=== PATIENT | female | born 1975 | race Asian ===

== ENCOUNTER 2017-12-06 20:35 | Emergency (ER) | payer OTHER ==
[2017-12-06] MEDS ORDERED: Albuterol/Ipratropium Neb 3 ML AERS HHN ONE ×2 (20:50→20:52)
[2017-12-06] MEDS ORDERED: Dexamethasone Sodium Phos 4 mg/mL Vial ONE (20:51)
[2017-12-06] MEDS ORDERED: Dexamethasone Sodium Phos 4 mg/mL Vial INH STA (20:53)
--- NOTE | 2017-12-06 21:07 | ED Physician Chart ---
ED Chief Complaint/HPI - Patient Information Date Seen:: 12/06/17 Time Seen:: 20:54 Chief Complaint:: cough History of Present Illness:: 42 yr old female with cough not getting better for few days hx of asthma finishing up zpack but not getting better Allergies:: Allergies Allergy/AdvReac Type Severity Reaction Status Date / Time No Known Allergies Allergy Verified 12/06/17 20:39 Vitals:: Vital Signs - 8 hr 12/06/17 20:35 Temp 98.4 F HR 96 RR 18 BP 163/112 O2 Sat % 96 ED Review of Systems - Review of Systems General/Constitutional: No fever Skin: No skin lesions Head: No headache Eyes: No loss of vision ENT: No earache Neck: No neck pain Cardio Vascular: No chest pain Pulmonary: No SOB GI: No nausea G/U: No dysuria Musculoskeletal: Bone or joint pain Endocrine: No polyuria Psychiatric: No prior psych history Hematopoietic: No bruising Neurological: No syncope Family Medical History - Family Member Mother History Unknown: Yes ED Septic Shock - . Is Septic Shock (SBP<90, OR Lactate>4 mmol\L) present?: No - <6hrs of presentation: Vital Signs: Vital Signs - 8 hr 12/06/17 20:35 Temp 98.4 F HR 96 RR 18 BP 163/112 O2 Sat % 96 ED Reassessment (Disposition) - Reassessment Reassessment Condition:: Improved - Diagnosis Diagnosis:: bronchitis asthma exacerbation - Aftercare/Follow up Instructions Aftercare/Follow-Up Instructions:: Counseled pt regarding lab results/diagnosis & need follow up Medication Prescribed:: albuterol inhaler bactrim ds medrol dose pack phenergan with codeine amylodipine 5 mg for hypertension - Patient Disposition Discharge/Transfer:: Home Condition at Disposition:: Stable
== END 2017-12-06 22:05 | disposition home or self-care (01) ==
LOC: EEVIPCON 20:35 → ER 20:35
DX: J45.901 Unspecified asthma with (acute) exacerbation (principal)
CPT/HCPCS: 99284; 94640; J1100; Z7502

== ENCOUNTER 2017-12-14 10:04 | Inpatient (IN) | payer OTHER ==
[2017-12-14 10:45] LABS: EOSINOPHILE ABSOLUTE 0.1 Th/cmm (0.1-0.4); HEMATOCRIT 45.5 % (41.0-60); HEMOGLOBIN 15.5 gm/dL (12-16); LYMPHOCYTE ABSOLUTE 0.8 Th/cmm (1.5-3.0); MEAN CELL VOLUME 88.2 fl (81-100); MEAN CORPUSCULAR HEMOGLOBIN 30.2 pg (27.0-31.0); MEAN CORPUSCULAR HGB CONC 34.2 pg (28.0-36.0); MEAN PLATELET VOLUME 7.7 fl; MONOCYTE ABSOLUTE 0.1 Th/cmm (0.3-1.0); NEUTROPHILE ABSOLUTE 10.8 Th/cmm (1.8-8.0); PLATELET COUNT 467 Th/cmm (150-400); RED BLOOD COUNT 5.15 Mil/cmm (3.80-5.10); RED CELL DISTRIBUTION WIDTH 12.6 % (11.5-20.0); WHITE BLOOD COUNT 11.8 Th/cmm (4.8-10.8)
[2017-12-14] MEDS ORDERED: Lactated Ringer 1,000 ML IV ONE (10:49)
[2017-12-14] MEDS ORDERED: cefTRIAXone 1 GM in Sodium Chloride 0.9% 50 ML IV ONE (10:51)
[2017-12-14 10:55] LABS: URINE SOURCE CLEAN C
[2017-12-14 11:01] LABS: ALB/GLOB RATIO 1.2 (1.0-1.8); ALBUMIN 4.6 gm/dL (3.7-5.3); ALKALINE PHOSPHATASE 63 U/L (34-104); ANION GAP 16.4 (7.0-16.0); BILIRUBIN,TOTAL 0.4 mg/dL (0.3-1.0); BUN - UREA NITROGEN 9 mg/dL (7-25); CALCIUM SERUM 9.7 mg/dL (8.6-10.3); CARBON DIOXIDE 20.3 mEq/L (21.0-31.0); CHLORIDE 102 mEq/L (98-107); CREATININE - SERUM 0.6 mg/dL (0.6-1.2); GFR AFRICAN-AMERICAN > 60.0 ml/min (>90); GFR NON AFRICAN-AMERICAN > 60.0 ml/min; GLUCOSE 113 mg/dL (70-105); MAGNESIUM 2.2 mg/dL (1.9-2.7); PHOSPHOROUS 1.8 mg/dL (2.5-5.0); POTASSIUM SERUM 3.7 mEq/L (3.5-5.1); SGOT 24 U/L (13-39); SGPT/ALT 38 U/L (7-52); SODIUM SERUM 135 mEq/L (136-145); TOTAL PROTEIN,SERUM 8.3 gm/dL (6.0-8.3)
[2017-12-14 11:02] LABS: URINE BILIRUBIN NEGATIVE (NEGATIVE); URINE BLOOD TRACE (NEGATIVE); URINE GLUCOSE (UA) NEGATIVE (NEGATIVE); URINE KETONE NEGATIVE (NEGATIVE); URINE LEUKOCYTE ESTERASE TRACE (NEGATIVE); URINE MICROSCOPIC INDICATED? YES; URINE NITRATE NEGATIVE (NEGATIVE); URINE PROTEIN NEGATIVE (NEGATIVE); URINE UROBILINOGEN 0.2 E.U./dL (0.2 - 1.0)
[2017-12-14] MEDS ORDERED: Sodium Phos / Potassium Phos 1.25 GM PACK PO ONE (11:09)
[2017-12-14 11:24] LABS: DDIMER QUANT 112 ng/mL (100-400)
[2017-12-14 11:39] LABS: URINE CLARITY CLEAR (CLEAR); URINE COLOR YELLOW; URINE EPITHELIAL CELLS FEW /lpf (FEW); URINE RBC 0-2 /hpf (0-5)
[2017-12-14 11:40] LABS: URINE BACTERIA MODERATE /hpf (NONE SEEN)
[2017-12-14 11:55] LABS: INF A SCREEN NEG FOR INF A; INF B SCREEN NEG FOR INF B
[2017-12-14] MEDS ORDERED: Piperacillin Sodium/Tazobact 3.375 gm Vial IV ONE (12:01)
[2017-12-14] MEDS ORDERED: Albuterol Nebulizer 2.5mg/3mL HHN PRN (12:11)
[2017-12-14] MEDS ORDERED: Ipratropium Neb 0.5 mg/2.5 mL UD IH PRN (12:11)
[2017-12-14] MEDS ORDERED: D5-0.9%NS 1,000 ML IV SCH (12:15)
--- NOTE | 2017-12-14 12:24 | Diagnostic Imaging Report ---
Portable chest x-ray History: Shortness of breath Allowing for portable technique the heart size is normal. No focal pulmonary parenchymal processes. No hilar or mediastinal abnormalities. Impression: No acute abnormalities.
[2017-12-14] MEDS ORDERED: Codeine/Promethazine Susp 5 mL UDC PO PRN (12:26)
[2017-12-14 12:37] LABS: BAND NEUTROPHILE 1 % (0-10); NEUTROPHILS 85 % (40-80)
[2017-12-14 12:38] LABS: LYMPHOCYTE 12 % (20-50); MONOCYTE 2 % (2-10); PLATELET ESTIMATE INCREASED PLATELETS (NORMAL)
--- NOTE | 2017-12-14 12:45 | ED Physician Chart ---
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 she presents asking for a CXR. had productive sputum in the past. she was seen by Dr Cortez on 12/04/17 and prescribed codeine cough syrup and zpack. Returned on 12/06/17 and signed in as a patient. antibiotics were changed to Bacrtrim. cough syrup was prescribed again. she recently came back from the [facility] where she was there for 4 weeks. Cough started after that. States that her PPD is always positive. Allergies:: Allergies Allergy/AdvReac Type Severity Reaction Status Date / Time No Known Allergies Allergy Verified 12/06/17 20:39 Vitals:: Vital Signs - 8 hr 12/14/17 12/14/17 10:14 12:18 Temp 98.7 F 98.7 F HR 122 104 RR 23 26 BP 150/86 151/82 O2 Sat % 98 99 Historian:: Patient, Family Member Review:: Nurse's Note Reviewed ED Review of Systems - Review of Systems General/Constitutional: No fever, No chills, No weight loss, Weakness, No diaphoresis, No edema, No loss of appetite Skin: No skin lesions, No rash, No bruising Head: No headache, No light-headedness Eyes: No loss of vision, No pain, No diplopia ENT: No earache, Nasal drainage, No sore throat, No tinnitus Neck: No neck pain, No swelling, No thyromegaly, No stiffness, No mass noted Cardio Vascular: No chest pain, No palpitations, No PND, No orthopnea, No edema Pulmonary: SOB, Cough, No sputum, No wheezing GI: No nausea, No vomiting, No diarrhea, No pain, No melena, No hematochezia, No constipation, No hematemesis G/U: No dysuria, No frequency, No hematuria Musculoskeletal: No bone or joint pain, No back pain, No muscle pain Endocrine: No polyuria, No polydipsia Psychiatric: No prior psych history, No depression, No anxiety, No suicidal ideation Hematopoietic: No bruising, No lymphadenopathy Allergic/Immuno: No urticaria, No angioedema Neurological: No syncope, No focal symptoms, No weakness, No paresthesia, No headache, No seizure, No dizziness, No confusion, No vertigo ED Past Medical History - Past Medical History Obtainable: Yes Past Medical History: HTN, Other (ppd positive) Social History: Family Medical History - Family Member Mother History Unknown: Yes Father Name:: Alberto Reyes Ethnicity: Non- Living Status: Hx Family Cancer: Yes (Prostate cancer) Hx Family Coronary Artery Disease: No Hx Family Congestive Heart Failure: No Hx Family Hypertension: Yes Hx Family Stroke: No Hx Family Diabetes: No Hx Family Seizures: No Hx Family Dementia: No Hx Family AIDS: No Hx Family HIV: No Hx Family COPD: No Hx Family Hepatitis: No Hx Family Psychiatric Problems: No Hx Family Tuberculosis: No ED Physical Exam - Physical Examination General/Constitutional: Awake, Well-developed, well-nourished, Alert, GCS 15, Non-toxic appearing, Ambulatory Other Gen/Cons comments:: sob with talking. Head: Atraumatic Eyes: Lids, conjuctiva normal, PERRL, EOMI Skin: Nl inspection, No rash, No skin lesions, No ecchymosis, No lymphadenopathy Other Skin comments:: dry oral mucosa ENMT: External ears, nose nl Neck: Nontender, No nuchal rigidity Other Respiratory comments:: sob with talking. Bilateral rhonchi. No wheezing. Other Cardio Vascular comments:: tachycardia. : No CVA tenderness Extremities: No tenderness or effusion, Full ROM, normal strength in all extremities, No edema Neuro/Psych: Alert/oriented, Normal sensory exam, Normal motor strength, Judgement/insight normal, Mood normal, Normal gait, No focal deficits Misc: Normal back, No paraspinal tenderness ED Labs/Radiology/EKG Results - Lab Results Results: Laboratory Tests 12/14/17 12/14/17 12/14/17 10:15 10:15 10:32 WBC RBC Hgb Hct MCV MCH MCHC Differential RDW Plt Count MPV Add Manual Diff Band Neutrophils % Neutrophils (Manual) Lymphocytes Monocytes Platelet Estimate D-Dimer Sodium Potassium Chloride Carbon Dioxide Anion Gap BUN Creatinine Est GFR ( Amer) Est GFR (Non-Af Amer) BUN/Creatinine Ratio Glucose Whole Bld Lactic Acid Calcium Phosphorus Magnesium Total Bilirubin AST ALT Alkaline Phosphatase Total Protein Albumin Globulin Albumin/Globulin Ratio Urine Source CLEAN C Urine Color YELLOW Urine Clarity CLEAR Urine pH 6.0 Ur Specific [place] 1.010 Urine Protein NEGATIVE Urine Glucose (UA) NEGATIVE Urine Ketones NEGATIVE Urine Blood TRACE Urine Nitrate NEGATIVE Urine Bilirubin NEGATIVE Urine Urobilinogen 0.2 Ur Leukocyte Esterase TRACE H Urine RBC 0-2 Urine WBC 6-10 H Ur Epithelial Cells FEW Urine Bacteria MODERATE H Urine Test NEGATIVE POC Ur Test Negative Influenza A (Rapid) Influenza B (Rapid) 12/14/17 12/14/17 12/14/17 10:34 10:34 10:34 WBC 11.8 H RBC 5.15 H Hgb 15.5 Hct 45.5 MCV 88.2 MCH 30.2 MCHC Differential 34.2 RDW 12.6 Plt Count 467 H MPV 7.7 Add Manual Diff YES Band Neutrophils % 1 Neutrophils (Manual) 85 H Lymphocytes 12 L Monocytes 2 Platelet Estimate INCREASED PLATELETS D-Dimer 112 Sodium 135 L Potassium 3.7 Chloride 102 Carbon Dioxide 20.3 L Anion Gap 16.4 H BUN 9 Creatinine 0.6 Est GFR ( Amer) > 60.0 Est GFR (Non-Af Amer) > 60.0 BUN/Creatinine Ratio 15.0 Glucose 113 H Whole Bld Lactic Acid 3.45 H* Calcium 9.7 Phosphorus 1.8 L Magnesium 2.2 Total Bilirubin 0.4 AST 24 ALT 38 Alkaline Phosphatase 63 Total Protein 8.3 Albumin 4.6 Globulin 3.7 Albumin/Globulin Ratio 1.2 Urine Source Urine Color Urine Clarity Urine pH Ur Specific [place] Urine Protein Urine Glucose (UA) Urine Ketones Urine Blood Urine Nitrate Urine Bilirubin Urine Urobilinogen Ur Leukocyte Esterase Urine RBC Urine WBC Ur Epithelial Cells Urine Bacteria Urine Test POC Ur Test Influenza A (Rapid) Influenza B (Rapid) 12/14/17 11:07 WBC RBC Hgb Hct MCV MCH MCHC Differential RDW Plt Count MPV Add Manual Diff Band Neutrophils % Neutrophils (Manual) Lymphocytes Monocytes Platelet Estimate D-Dimer Sodium Potassium Chloride Carbon Dioxide Anion Gap BUN Creatinine Est GFR ( Amer) Est GFR (Non-Af Amer) BUN/Creatinine Ratio Glucose Whole Bld Lactic Acid Calcium Phosphorus Magnesium Total Bilirubin AST ALT Alkaline Phosphatase Total Protein Albumin Globulin Albumin/Globulin Ratio Urine Source Urine Color Urine Clarity Urine pH Ur Specific [place] Urine Protein Urine Glucose (UA) Urine Ketones Urine Blood Urine Nitrate Urine Bilirubin Urine Urobilinogen Ur Leukocyte Esterase Urine RBC Urine WBC Ur Epithelial Cells Urine Bacteria Urine Test POC Ur Test Influenza A (Rapid) NEG FOR INF A Influenza B (Rapid) NEG FOR INF B ED Assessment - Assessment General Assessment: EKG from 12:27:39 p.m. reveals sinus tachycardia with flipped t wave in III, V1- V2. Dr. Anne (patient's primary care physician called). He came to see the patient in the ER and will admit her. Assessment/Comments:: my reading of CXR. More hazy in the RLL. May need hydration to fully see infiltrate. ED Septic Shock - . Is Septic Shock (SBP<90, OR Lactate>4 mmol\L) present?: No - <6hrs of presentation: Vital Signs: Vital Signs - 8 hr 12/14/17 12/14/17 10:14 12:18 Temp 98.7 F 98.7 F HR 122 104 RR 23 26 BP 150/86 151/82 O2 Sat % 98 99 ED Reassessment (Disposition) - Reassessment Reassessment Condition:: Improved - Diagnosis Diagnosis:: Early right lower lobe pneumonia. Dehydration Tachycardia. Urinary tract infection. Lactic acidosis. Leukocytosis Thrombocytosis. Low phosphorous. - Patient Disposition Discharge/Transfer:: Acute Care w/in this hosp Admitted to:: Telemetry Condition at Disposition:: Stable, Improved
--- NOTE | 2017-12-14 13:56 | Diagnostic Imaging Report ---
CT scan of the chest without intravenous contrast HISTORY: Shortness of breath Total DLP equals 198 CTDI equals 6.2 Axial sections were obtained from level above the clavicles down to level below the diaphragm. The heart size is normal. No abnormal mediastinal masses. Evaluation the hilar and vascular structures limited due to the absence of intravenous contrast. No definite abnormal hilar masses. No abnormal focal pulmonary parenchymal processes. No other abnormal masses or nodules. No pleural fluid. IMPRESSION: No acute abnormalities
[2017-12-14] MEDS ORDERED: Sodium Phosphate 20 MMOLE in Sodium Chloride 0.9% 250 ML IV ONE (14:00)
[2017-12-14] MEDS: guaiFENesin 200 MG/10 ML UDC PO PRN ×2 (14:21→21:10)
[2017-12-14 15:11] VITALS: BP 150/86
--- NOTE | 2017-12-14 22:23 | History & Physical ---
ADMIT DATE: 12/14/2017 CHIEF COMPLAINT: Not feeling well, ____ coughing. HISTORY OF PRESENT ILLNESS: This is a 42-year-old [place] female with history of asthma, was seen initially 2 days prior, complaining of cough and congestion. The patient was diagnosed with asthma and bronchitis. At that time, the patient was discharged home on Bactrim as well as a Medrol keyanna. The patient comes back not feeling well with increasing congestion. The patient was evaluated by Dr. Avilez. UA was positive for UTI as well as a congestion on chest x-ray. The patient had elevated lactic acid, elevated white count. The patient required admission secondary to failing outpatient therapy. PAST MEDICAL HISTORY: As mentioned in the history of present illness. PAST SURGICAL HISTORY: Denies surgeries in the past. ALLERGIES: No known drug allergies. MEDICATIONS: Bactrim as well as Medrol keyanna. FAMILY HISTORY: Noncontributory. SOCIAL HISTORY: The patient is a nonsmoker, nondrinker, . REVIEW OF SYSTEMS: GENERAL: Complains not feeling well. HEENT: No blurred vision. LUNGS: No diagnosis of chronic obstructive pulmonary disease. The patient has asthma. HEART: The patient with elevated blood pressure, previously prescribed amlodipine, but not taking it. ABDOMEN: No nausea, vomiting, or pain. GENITOURINARY: The patient denies increased effort or dysuria. NEUROLOGIC: No headache, seizure or CVA. PSYCHIATRIC: As above. PHYSICAL EXAMINATION: VITAL SIGNS: Blood pressure 113/88, respirations 18, pulse 104-122, temperature 98. GENERAL: Middle-aged female, in no acute distress. NECK: Supple. No mass. LUNGS: Equal breath sounds with a few rhonchi. HEART: Sinus tachycardia. No murmur. ABDOMEN: Soft, globular. EXTREMITIES: Positive excoriation. NEUROLOGIC: Limited. LABORATORY DATA: Noted WBC 11, hemoglobin 15, platelets 467. Sodium 135, potassium 3.7, BUN 9, creatinine 0.6. Lactic acid 3.4, blood sugar 113, phosphorus 1.8. UA moderate bacteria, 10 wbc's. Influenza A and B are negative. ASSESSMENT: 1. Sepsis, possible pneumonia. 2. Urinary tract infection. 3. Asthma. 4. Elevated blood pressure. 5. Leukocytosis. 6. Hyponatremia. 7. Hypophosphatemia. PLAN: We will correct the patient's electrolyte imbalance. We will aggressively hydrate the patient. We will monitor the patient's lactic acid. Continue IV antibiotic. We will send for sputum Gram stain and C and S. We will admit the patient for further management. Case was discussed with the patient as well as Dr. Avilez. JOB# [id number]
[2017-12-15 05:05] LABS: % BASOPHILS 0.1 % (0.0-2.0); % EOSINOPHILS 0.8 % (0.0-5.0); % LYMPHOCYTES 19.1 % (20.0-50.0); % MONOCYTES 3.1 % (2.0-10.0); % NEUTROPHILS 76.9 % (40.0-80.0); EOSINOPHILE ABSOLUTE 0.1 Th/cmm (0.1-0.4); HEMATOCRIT 42.6 % (41.0-60); HEMOGLOBIN 14.7 gm/dL (12-16); LYMPHOCYTE ABSOLUTE 1.9 Th/cmm (1.5-3.0); MEAN CELL VOLUME 86.8 fl (81-100); MEAN CORPUSCULAR HEMOGLOBIN 29.9 pg (27.0-31.0); MEAN CORPUSCULAR HGB CONC 34.4 pg (28.0-36.0); MONOCYTE ABSOLUTE 0.3 Th/cmm (0.3-1.0); NEUTROPHILE ABSOLUTE 7.7 Th/cmm (1.8-8.0); PLATELET COUNT 448 Th/cmm (150-400); RED BLOOD COUNT 4.91 Mil/cmm (3.80-5.10); RED CELL DISTRIBUTION WIDTH 12.3 % (11.5-20.0)
[2017-12-15 05:36] LABS: ALB/GLOB RATIO 1.3 (1.0-1.8); ALKALINE PHOSPHATASE 50 U/L (34-104); ANION GAP 14.1 (7.0-16.0); BILIRUBIN,TOTAL 0.8 mg/dL (0.3-1.0); BUN - UREA NITROGEN 7 mg/dL (7-25); CALCIUM SERUM 8.3 mg/dL (8.6-10.3); CARBON DIOXIDE 22.8 mEq/L (21.0-31.0); CHLORIDE 102 mEq/L (98-107); CREATININE - SERUM 0.5 mg/dL (0.6-1.2); GFR AFRICAN-AMERICAN > 60.0 ml/min (>90); GFR NON AFRICAN-AMERICAN > 60.0 ml/min; GLUCOSE 112 mg/dL (70-105); SGOT 21 U/L (13-39); SGPT/ALT 31 U/L (7-52); SODIUM SERUM 136 mEq/L (136-145); TOTAL PROTEIN,SERUM 7.2 gm/dL (6.0-8.3)
[2017-12-15 05:42] LABS: POTASSIUM SERUM 2.9 mEq/L (3.5-5.1)
[2017-12-15] MEDS ORDERED: Potassium Chloride 40 MEQ, Lidocaine 1% 20mL Vial 25 MG in Sodium Chloride 0.9% 250 ML IV ONE (08:30)
[2017-12-15] MEDS: guaiFENesin 200 MG/10 ML UDC PO PRN (09:25)
[2017-12-15] MEDS ORDERED: Potassium Chloride 20 mEq ER Tab PO ONE (11:59)
--- NOTE | 2017-12-15 13:27 | Internal Medicine Prog Note ---
Internal Medicine Subjective - Subjective Service Date: 12/15/17 (dc summary [id number]) Internal Medicine Objective - Results Result Diagrams: 12/15/17 05:00 12/15/17 05:00 Recent Labs: Laboratory Last Values WBC 10.0 Th/cmm (4.8-10.8) 12/15/17 05:00 RBC 4.91 Mil/cmm (3.80-5.10) 12/15/17 05:00 Hgb 14.7 gm/dL (12-16) 12/15/17 05:00 Hct 42.6 % (41.0-60) 12/15/17 05:00 MCV 86.8 fl (81-100) 12/15/17 05:00 MCH 29.9 pg (27.0-31.0) 12/15/17 05:00 MCHC Differential 34.4 pg (28.0-36.0) 12/15/17 05:00 RDW 12.3 % (11.5-20.0) 12/15/17 05:00 Plt Count 448 Th/cmm (150-400) H 12/15/17 05:00 MPV 7.0 fl 12/15/17 05:00 Add Manual Diff YES 12/14/17 10:34 Neutrophils % 76.9 % (40.0-80.0) 12/15/17 05:00 Band Neutrophils % 1 % (0-10) 12/14/17 10:34 Lymphocytes % 19.1 % (20.0-50.0) L 12/15/17 05:00 Monocytes % 3.1 % (2.0-10.0) 12/15/17 05:00 Eosinophils % 0.8 % (0.0-5.0) 12/15/17 05:00 Basophils % 0.1 % (0.0-2.0) 12/15/17 05:00 Neutrophils (Manual) 85 % (40-80) H 12/14/17 10:34 Lymphocytes 12 % (20-50) L 12/14/17 10:34 Monocytes 2 % (2-10) 12/14/17 10:34 Platelet Estimate INCREASED PLATELETS (NORMAL) 12/14/17 10:34 D-Dimer 112 ng/mL (100-400) 12/14/17 10:34 Sodium 136 mEq/L (136-145) 12/15/17 05:00 Potassium 2.9 mEq/L (3.5-5.1) L* 12/15/17 05:00 Chloride 102 mEq/L (98-107) 12/15/17 05:00 Carbon Dioxide 22.8 mEq/L (21.0-31.0) 12/15/17 05:00 Anion Gap 14.1 (7.0-16.0) 12/15/17 05:00 BUN 7 mg/dL (7-25) 12/15/17 05:00 Creatinine 0.5 mg/dL (0.6-1.2) L 12/15/17 05:00 Est GFR ( Amer) > 60.0 ml/min (>90) 12/15/17 05:00 Est GFR (Non-Af Amer) > 60.0 ml/min 12/15/17 05:00 BUN/Creatinine Ratio 14.0 12/15/17 05:00 Glucose 112 mg/dL (70-105) H 12/15/17 05:00 Whole Bld Lactic Acid 2.21 mmol/L (0.60-1.99) H* 12/14/17 13:01 Calcium 8.3 mg/dL (8.6-10.3) L 12/15/17 05:00 Phosphorus 2.3 mg/dL (2.5-5.0) L 12/15/17 05:00 Magnesium 2.2 mg/dL (1.9-2.7) 12/14/17 10:34 Total Bilirubin 0.8 mg/dL (0.3-1.0) 12/15/17 05:00 AST 21 U/L (13-39) 12/15/17 05:00 ALT 31 U/L (7-52) 12/15/17 05:00 Alkaline Phosphatase 50 U/L (34-104) 12/15/17 05:00 Total Protein 7.2 gm/dL (6.0-8.3) 12/15/17 05:00 Albumin 4.0 gm/dL (3.7-5.3) 12/15/17 05:00 Globulin 3.2 gm/dL 12/15/17 05:00 Albumin/Globulin Ratio 1.3 (1.0-1.8) 12/15/17 05:00 TSH 4.77 uIU/ml (0.34-5.60) 12/15/17 05:00 Urine Source CLEAN C 12/14/17 10:15 Urine Color YELLOW 12/14/17 10:15 Urine Clarity CLEAR (CLEAR) 12/14/17 10:15 Urine pH 6.0 (4.6 - 8.0) 12/14/17 10:15 Ur Specific [place] 1.010 (1.005-1.030) 12/14/17 10:15 Urine Protein NEGATIVE mg/dL (NEGATIVE) 12/14/17 10:15 Urine Glucose (UA) NEGATIVE mg/dL (NEGATIVE) 12/14/17 10:15 Urine Ketones NEGATIVE mg/dL (NEGATIVE) 12/14/17 10:15 Urine Blood TRACE (NEGATIVE) 12/14/17 10:15 Urine Nitrate NEGATIVE (NEGATIVE) 12/14/17 10:15 Urine Bilirubin NEGATIVE (NEGATIVE) 12/14/17 10:15 Urine Urobilinogen 0.2 E.U./dL (0.2 - 1.0) 12/14/17 10:15 Ur Leukocyte Esterase TRACE (NEGATIVE) H 12/14/17 10:15 Urine RBC 0-2 /hpf (0-5) 12/14/17 10:15 Urine WBC 6-10 /hpf (0-5) H 12/14/17 10:15 Ur Epithelial Cells FEW /lpf (FEW) 12/14/17 10:15 Urine Bacteria MODERATE /hpf (NONE SEEN) H 12/14/17 10:15 Urine Test NEGATIVE 12/14/17 10:15 POC Ur Test Negative 12/14/17 10:32 Influenza A (Rapid) NEG FOR INF A 12/14/17 11:07 Influenza B (Rapid) NEG FOR INF B 12/14/17 11:07 - Physical Exam Vitals and I&O: Vital Signs Temp 97.1 F 12/15/17 11:26 Pulse 98 12/15/17 11:26 Resp 18 12/15/17 11:26 BP 146/75 12/15/17 11:26 Pulse Ox 99 12/15/17 11:26 Intake & Output 12/14/17 12/15/17 12/15/17 18:59 06:59 18:59 Intake Total 740.833 0 Balance 740.833 0 Weight (lbs) 166 lb 150 lb Intake: Intake, IV Amount 620.833 0 Cefepime 1 gm In Dextrose 100 5% 50 ml @ 100 mls/hr IV Q12HR@0900,2100 [facility] Rx#: [id number] D5-0.9%Ns 1,000 ml @ 125 520.833 0 mls/hr IV .Q8H [facility] Rx#: [id number] Oral 120 Other: # Voids 3 # Bowel Movements 1 Weight Source Patient stated Bedscale Active Medications: Current Medications Acetaminophen (Tylenol) 650 mg PO Q4H PRN PRN Reason: Pain Or Fever above 101 Stop: 02/12/18 12:11 Last Admin: 12/15/17 09:25 Dose: 650 mg Albuterol Sulfate (Albuterol 2.5mg/3ml Neb Ud) 2.5 mg HHN Q2HRT PRN PRN Reason: Shortness of Breath or Wheeze Stop: 02/12/18 12:10 Guaifenesin (Robitussin) 200 mg PO Q4HR PRN PRN Reason: Cough or Congestion Stop: 02/12/18 12:11 Last Admin: 12/15/17 09:25 Dose: 200 mg Heparin Sodium (Porcine) (Heparin) 5,000 units SUBQ Q12HR [facility] Stop: 02/12/18 20:59 Last Admin: 12/15/17 09:18 Dose: 5,000 units Cefepime HCl 1 gm/ Dextrose 50 mls @ 100 mls/hr IV Q12HR@0900,2100 [facility] Stop: 02/12/18 13:59 Last Admin: 12/15/17 09:18 Dose: 100 mls/hr Dextrose/Sodium Chloride (D5-0.9%Ns) 1,000 mls @ 125 mls/hr IV .Q8H [facility] Stop: 02/12/18 12:14 Last Infusion: 12/15/17 13:25 Dose: 125 mls/hr Ipratropium [place] (Atrovent Neb 0.5mg/2.5ml) 0.5 mg IH Q2HRT PRN PRN Reason: Shortness of Breath or Wheeze Stop: 02/12/18 12:10 Ondansetron HCl (Zofran) 4 mg IV Q8H PRN PRN Reason: Nausea / Vomiting Stop: 02/12/18 12:11 Promethazine HCl/Codeine (Phenergan W/Cod Susp) 10 ml PO Q6H PRN PRN Reason: IF ROBITUSSIN INEFFECTIVE Stop: 02/12/18 12:25 Zolpidem Tartrate (Ambien) 10 mg PO HS PRN PRN Reason: Insomnia Stop: 02/12/18 12:10 Last Admin: 12/14/17 22:30 Dose: 10 mg
--- NOTE | 2017-12-15 20:43 | Discharge Summary ---
DATE OF DISCHARGE: 12/15/2017 DISCHARGE DIAGNOSES: Acute urinary tract infection, asthma, elevated blood pressure, leukocytosis, which has improved, hyponatremia and hypophosphatemia. HISTORY OF PRESENT ILLNESS: A 42-year-old [place] female with a history of asthma who was seen initially 2 days prior complaining of cough and congestion. The patient was diagnosed with asthma and bronchitis at that time. The patient was discharged home on Bactrim as well as Medrol [place]. The patient comes back not feeling well with increasing congestion. The patient was evaluated by ER physician, Dr. Avilez. UA was positive for UTI as well as congestion on x-ray. The patient had elevated lactic acid and elevated white count; therefore, sepsis protocol was initiated. PHYSICAL EXAMINATION: GENERAL: The patient is well-developed, well-nourished, no apparent distress. VITAL SIGNS: Stable. HEAD: Normocephalic and atraumatic. NECK: Supple. No mass. LUNGS: Clear bilaterally. HEART: Regular rate and rhythm. ABDOMEN: Soft and nontender. HOSPITAL COURSE: During the hospital stay, the patient was admitted to the telemetry unit. We corrected the patient's electrolyte imbalance and aggressive IV fluids for hydration. The patient was also kept on empiric IV antibiotics. The patient's blood culture showed no growth after 24 hours, no growth as well as from sputum culture. The patient was later then stabilized for discharge. CONDITION UPON DISCHARGE: Fair. DISPOSITION: Home. The patient was educated to follow up with PCP upon discharge. JOB# [id number]
== END 2017-12-15 14:15 | disposition home or self-care (01) | DRG 871 ==
LOC: ER 10:04 → MSI 12:28 → TELE 12:39
PROVIDERS: ADMIT Internal Medicine; ATTEND Internal Medicine
DX: A41.9 Sepsis, unspecified organism (principal); J18.1 Lobar pneumonia, unspecified organism; N39.0 Urinary tract infection, site not specified; E87.1 Hypo-osmolality and hyponatremia; J45.909 Unspecified asthma, uncomplicated; E83.39 Other disorders of phosphorus metabolism; I10 Essential (primary) hypertension; E86.0 Dehydration
CPT/HCPCS: 36415-UA; 71045-TC; 71250-TC; 80053-TC; 81001-TC; 81025-TC; 83605; 83735-TC; 84100-TC; 84443-TC; 85007-TC; 85025-TC; 85379-TC; 87070; 87086-90; 87804-TC; 90799; 93005; 94760; 96375; J0692; J0696; J1644; J2001; J2543; J3480; J7042; Z7610

== ENCOUNTER 2018-02-05 09:56 | Emergency (ER) | payer OTHER ==
[2018-02-05] MEDS ORDERED: Morphine Sulfate 2 mg/mL 1mL Syr IVP ONE (10:17)
[2018-02-05] MEDS ORDERED: Sodium Chloride 0.9% 1,000 ML IV ONE (10:17)
--- NOTE | 2018-02-05 10:17 | ED Physician Chart ---
ED Chief Complaint/HPI - Patient Information Date Seen:: 02/05/18 Time Seen:: 10:00 Chief Complaint:: Abdominal Pain History of Present Illness:: onset x 3 hours of intermittent, sharp, plueritic right C/P, and RUQ Abd. 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 Allergies:: Allergies Allergy/AdvReac Type Severity Reaction Status Date / Time No Known Allergies Allergy Verified 12/06/17 20:39 Vitals:: Vital Signs - 8 hr 02/05/18 10:06 Temp 98.1 F HR 106 RR 15 BP 167/90 O2 Sat % 100 Historian:: Patient Review:: Nurse's Note Reviewed ED Review of Systems - Review of Systems General/Constitutional: No fever, No chills, No weight loss, No weakness, No diaphoresis, No edema, No loss of appetite Skin: No skin lesions, No rash, No bruising Head: No headache, No light-headedness Eyes: No loss of vision, No pain, No diplopia ENT: No earache, No nasal drainage, No sore throat, No tinnitus Neck: No neck pain, No swelling, No thyromegaly, No stiffness, No mass noted Cardio Vascular: Chest pain, No palpitations, No PND, No orthopnea, No edema Pulmonary: No SOB, No cough, No sputum, No wheezing GI: No nausea, No vomiting, No diarrhea, Pain, No melena, No hematochezia, No constipation, No hematemesis G/U: No dysuria, No frequency, No hematuria, No nacturia Bryologist: No vaginal discharge, No abnormal vaginal bleed, No contraction Musculoskeletal: No bone or joint pain, No back pain, No muscle pain Endocrine: No polyuria, No polydipsia Psychiatric: No prior psych history, No depression, No anxiety, No suicidal ideation, No homicidal ideation, No auditory hallucination, No visual hallucination Hematopoietic: No bruising, No lymphadenopathy Allergic/Immuno: No urticaria, No angioedema Neurological: No syncope, No focal symptoms, No weakness, No paresthesia, No headache, No seizure, No dizziness, No confusion, No vertigo ED Past Medical History - Past Medical History Obtainable: Yes Past Medical History: No significant medical hx Family History: None Social History: Non Smoker, No Alcohol, No Drug Use, , Employed Surgical History: None Psychiatricy History: None Medication: Reviewed Family Medical History - Family Member Mother History Unknown: Yes Ethnicity: Non- Living Status: Still Living Hx Family Cancer: No Hx Family Coronary Artery Disease: No Hx Family Congestive Heart Failure: No Hx Family Hypertension: No Hx Family Stroke: No Hx Family Diabetes: No Hx Family Seizures: No Hx Family Dementia: No Hx Family AIDS: No Hx Family HIV: No Hx Family COPD: No Hx Family Hepatitis: No Hx Family Psychiatric Problems: No Hx Family Tuberculosis: No Father History Unknown: Yes Ethnicity: Non- Living Status: Hx Family Cancer: Yes (Prostate cancer) Hx Family Coronary Artery Disease: No Hx Family Congestive Heart Failure: No Hx Family Hypertension: Yes Hx Family Stroke: No Hx Family Diabetes: No Hx Family Seizures: No Hx Family Dementia: No Hx Family AIDS: No Hx Family HIV: No Hx Family COPD: No Hx Family Hepatitis: No Hx Family Psychiatric Problems: No Hx Family Tuberculosis: No ED Physical Exam - Physical Examination General/Constitutional: Awake, Well-developed, well-nourished, Alert, No distress, GCS 15, Non-toxic appearing, Ambulatory Head: Atraumatic Eyes: Lids, conjuctiva normal, PERRL, EOMI Skin: Nl inspection, No rash, No skin lesions, No ecchymosis, Well hydrated, No lymphadenopathy ENMT: External ears, nose nl, TM canals nl, Nasal exam nl, Lips, teeth, gums nl , Oropharynx nl, Tonsils nl Neck: Nontender, Full ROM w/o pain, No JVD, No nuchal rigidity, No bruit, No mass, No stridor Other Neck comments:: supple; no meningeal signs; no cervical tenderness; no bruits Respiratory: Nl effort/Exclusion, Clear to Auscultation, No Wheeze/Rhonchi/Rales Cardio Vascular: RRR, No murmur, gallop, rubs, NL S1 S2, Carotid/Femoral/Distal pulses equal bilaterally GI: No tenderness/rebounding/guarding, No organomegaly, No hernia, Normal BS's, Nondistended, No mass/bruits, No McBurney tenderness Other GI comments:: + RUQ Tenderness; no pulsatile masses : No CVA tenderness Extremities: No tenderness or effusion, Full ROM, normal strength in all extremities, No edema, Normal digits & nails Neuro/Psych: Alert/oriented, DTR's symmetric, Normal sensory exam, Normal motor strength, Judgement/insight normal, Mood normal, Normal gait, No focal deficits Other Neuro/Psych comments:: no focal signs Misc: Normal back, No paraspinal tenderness ED Labs/Radiology/EKG Results - Lab Results Comments:: Reviewed - Radiology Results Comments:: U/S: + Gallstone vs. Polyp; Abd/Pelvis CT Scan: NAD; Chest CT Scan: NAD - EKG Interpretations EKG Time:: 11:18 Rate & Rhythm: 77; NSR Comments:: non-specific st-t changes ED Septic Shock - . Is Septic Shock (SBP<90, OR Lactate>4 mmol\L) present?: No - <6hrs of presentation: Vital Signs: Vital Signs - 8 hr 02/05/18 10:06 Temp 98.1 F HR 106 RR 15 BP 167/90 O2 Sat % 100 ED Reassessment (Disposition) - Reassessment Reassessment:: pt tolerated po fluids well in ER; pt is asymptomatic upon discharge; Dr. Anne notified; Discussed Case with Dr. Anne Reassessment Condition:: Improved - Diagnosis Diagnosis:: Dx: Rib Pain; Abdominal Pain; Pleuritic Chest Pain; Pleurisy; Cholithiasis; Lactic Acidosis; UTI; Hypokalemia - Aftercare/Follow up Instructions Aftercare/Follow-Up Instructions:: Counseled pt regarding lab results/diagnosis & need follow up, Refer to Discharge Instructions, Counseled pt & family regarding lab results/diagnosis & need follow up Medication Prescribed:: Rx: Macrobid 100mg po bid x 10 days; encourage fluids especially citric acid juices - Patient Disposition Discharge/Transfer:: Home Condition at Disposition:: Stable, Improved (X- Rays/Ultrasound Instructions; RTER prn if existing s/s reoccur and/or get worse and/or any other new s/s occur ; ACIs given for all above Dx; Refer to Drum Stock Clerk/GI Specialist/Branch Rental Manager /Edi Architect JAYESH; F/U with Dr. Anne in one day or prn; RTER prn if concerned)
[2018-02-05 10:38] LABS: URINE SOURCE CLEAN C
[2018-02-05 10:39] LABS: % BASOPHILS 0.5 % (0.0-2.0); % EOSINOPHILS 0.6 % (0.0-5.0); % LYMPHOCYTES 13.2 % (20.0-50.0); % MONOCYTES 1.9 % (2.0-10.0); % NEUTROPHILS 83.8 % (40.0-80.0); BASOPHILE ABSOLUTE 0.1 Th/cumm (0-0.2); EOSINOPHILE ABSOLUTE 0.1 Th/cmm (0.1-0.4); HEMATOCRIT 44.4 % (41.0-60); HEMOGLOBIN 14.9 gm/dL (12-16); LYMPHOCYTE ABSOLUTE 1.4 Th/cmm (1.5-3.0); MEAN CELL VOLUME 87.8 fl (81-100); MEAN CORPUSCULAR HEMOGLOBIN 29.6 pg (27.0-31.0); MEAN CORPUSCULAR HGB CONC 33.6 pg (28.0-36.0); MEAN PLATELET VOLUME 7.8 fl; MONOCYTE ABSOLUTE 0.2 Th/cmm (0.3-1.0); NEUTROPHILE ABSOLUTE 8.5 Th/cmm (1.8-8.0); PLATELET COUNT 389 Th/cmm (150-400); RED BLOOD COUNT 5.06 Mil/cmm (3.80-5.10); RED CELL DISTRIBUTION WIDTH 11.8 % (11.5-20.0); WHITE BLOOD COUNT 10.3 Th/cmm (4.8-10.8)
[2018-02-05 10:42] LABS: URINE BILIRUBIN NEGATIVE (NEGATIVE); URINE BLOOD NEGATIVE (NEGATIVE); URINE GLUCOSE (UA) NEGATIVE (NEGATIVE); URINE KETONE NEGATIVE (NEGATIVE); URINE LEUKOCYTE ESTERASE TRACE (NEGATIVE); URINE MICROSCOPIC INDICATED? YES; URINE NITRATE NEGATIVE (NEGATIVE); URINE PROTEIN NEGATIVE (NEGATIVE); URINE UROBILINOGEN 0.2 E.U./dL (0.2 - 1.0)
[2018-02-05] MEDS ORDERED: Morphine Sulfate 2 mg/mL 1mL Syr ONE (10:46)
[2018-02-05 10:56] LABS: INR 0.93 (0.5-1.4); PROTHROMBIN TIME (TEST) 9.7 SECONDS (9.5-11.5)
[2018-02-05 10:57] LABS: ALB/GLOB RATIO 1.4 (1.0-1.8); ALBUMIN 4.3 gm/dL (3.7-5.3); ALKALINE PHOSPHATASE 51 U/L (34-104); AMYLASE SERUM 50 U/L (29-103); ANION GAP 12.4 (7.0-16.0); BILIRUBIN,TOTAL 0.4 mg/dL (0.3-1.0); BUN - UREA NITROGEN 11 mg/dL (7-25); CALCIUM SERUM 9.4 mg/dL (8.6-10.3); CARBON DIOXIDE 26.7 mEq/L (21.0-31.0); CHLORIDE 101 mEq/L (98-107); CHOLESTEROL 212 mg/dL (<200); CREATININE KINASE 92 U/L (30-223); GFR AFRICAN-AMERICAN > 60.0 ml/min (>90); GFR NON AFRICAN-AMERICAN > 60.0 ml/min; GLUCOSE 127 mg/dL (70-105); HDL -HIGH DENSITY LIPOPROTEIN 49 mg/dL (23-92); LIPASE 33 U/L (11-82); POTASSIUM SERUM 3.1 mEq/L (3.5-5.1); SGOT 24 U/L (13-39); SGPT/ALT 34 U/L (7-52); SODIUM SERUM 137 mEq/L (136-145); TOTAL PROTEIN,SERUM 7.4 gm/dL (6.0-8.3); TRIGLYCERIDES 83 mg/dL (<150)
[2018-02-05 11:29] LABS: URINE BACTERIA FEW /hpf (NONE SEEN); URINE CLARITY CLEAR (CLEAR); URINE COLOR YELLOW; URINE EPITHELIAL CELLS FEW /lpf (FEW); URINE RBC 0-2 /hpf (0-5)
[2018-02-05] MEDS ORDERED: cefTRIAXone 1 GM in Sodium Chloride 0.9% 50 ML IV ONE (11:35)
[2018-02-05 11:41] LABS: INR 0.93 (0.5-1.4); PROTHROMBIN TIME (TEST) 9.7 SECONDS (9.5-11.5)
--- NOTE | 2018-02-05 12:50 | Diagnostic Imaging Report ---
CT scan of the chest without intravenous contrast HISTORY: Pain Total DLP equals 245 CTDI equals 6.9 Axial sections were obtained from a level above the clavicles down to level below the diaphragm. The heart size is normal. No abnormal mediastinal masses. Evaluation of the vascular and hilar structures are limited due to the absence of intravenous contrast. No obvious abnormal hilar masses. No focal pulmonary parenchymal processes. No pleural fluid is seen. IMPRESSION: No acute abnormalities
--- NOTE | 2018-02-05 12:52 | Diagnostic Imaging Report ---
CT scan abdomen and pelvis without intravenous contrast HISTORY: Pain Total DLP equals 434 CTDI equals 9.5 Axial sections were obtained from the xiphoid process down to the pubic symphysis. Liver exhibits a homogeneous parenchyma. No focal lesions. The spleen appears normal. No abnormality seen in the region of the pancreas. No focal renal lesions. No calculi. No hydronephrosis. The exam of the pelvis demonstrates preservation of normal fat planes. No abnormal soft tissue masses or abnormal fluid collections. An IUD is seen within the uterus. IMPRESSION: 1. No acute abnormalities 2. IUD within the uterus
[2018-02-05] MEDS ORDERED: Potassium Chloride 20 mEq ER Tab PO ONE ×2 (13:22→13:25)
[2018-02-05 13:38] LABS: DDIMER QUANT < 100 ng/mL (100-400)
--- NOTE | 2018-02-05 13:50 | Diagnostic Imaging Report ---
Gallbladder ultrasound HISTORY: Pain Limited images obtained over the gallbladder. The exam demonstrates a questionable 1.5 mm nonmobile intraluminal density near the gallbladder neck. A cholesterol polyp or an adherent calculus cannot be definitely excluded. No biliary dilatation. The remainder of the abdomen was not evaluated at this time. IMPRESSION: 1. Subtle questionable 1.5 mm nonmobile intraluminal density near the gallbladder neck. A cholesterol polyp or adherent calculus cannot be definitely excluded.
== END 2018-02-05 14:05 | disposition home or self-care (01) ==
LOC: ER 09:56
DX: K80.20 Calculus of gallbladder without cholecystitis without obstruction (principal); N39.0 Urinary tract infection, site not specified; E87.6 Hypokalemia; E87.2 Acidosis; R07.81 Pleurodynia
CPT/HCPCS: 36415-UA; 71250-TC; 76705-TC; 80053-TC; 80061-TC; 81001-TC; 81025-TC; 82150-TC; 82550-TC; 83605; 83690-TC; 83880-TC; 84484-TC; 84703-TC; 85025-TC; 85379-TC; 85610-TC; 85730-TC; 93005; 96375; J0696; J2270; J2405; Z7502